=== PATIENT | male | born 1950 | race Caucasian/White ===

== ENCOUNTER 2022-09-26 23:44 | Outpatient (CLI) | payer MEDICARE | END 2022-09-26 23:45 | disposition critical access hospital (66) | LOC: EMS 23:44 | DX: E11.65 Type 2 diabetes mellitus with hyperglycemia (principal) | CPT/HCPCS: A0425; A0427 ==

== ENCOUNTER 2022-09-27 00:12 | Inpatient (IN) | payer MEDICARE, OTHER ==
--- NOTE | 2022-09-27 00:28 | ED Physician Documentation ---
History of Present Illness - Stated complaint Stated Complaint: FALL - Chief complaint Chief Complaint: Neuro - History obtained from History obtained from: Patient, Family, EMS - Additonal information Additional information: Patient is a 71-year-old male presenting for evaluation after a ground-level fall. Per EMS he was walking to the bathroom when he fell. EMS reported he had no LOC but patient cannot recall what happened with the fall or what made him fall. It is unclear if he hit his head.There is no family currently present. Per EMS he does not take a blood thinner. EMS reported that he had similar presentation about a year ago where he had a cough.Patient is visiting family in the area. He is unsure of his current medication list. He is disoriented to time which per EMS is new for him. 0215 - We were eventually able to speak with the patient's . She states that the patient was otherwise doing well earlier today. He was out driving himself and her and that they went to a [employer] store. She states that around 830 he was becoming restless and was getting in and out of bed. He started having several episodes of diarrhea. She states that he was walking toward the bathroom when it seemed that his legs gave out and he fell down. She states that she witnessed this fall and he did not hit his head or have LOC.She states that at baseline he does have some unsteadiness and was advised to use a walker by a physical therapist.She states that he is sometimes forgetful.He does not carry a diagnosis of dementia. He takes medications for diabetes and cholester ol.He has not recently been on antibiotics. She states that he has similar presentation with fall in June and at this time he was diagnosed with pneumonia.This was in [place]. Review of Systems Unable to obtain: Confused PD PAST MEDICAL HISTORY - Allergies Allergies/Adverse Reactions: Allergies Allergy/AdvReac Type Severity Reaction Status Date / Time No Known Drug Allergies Allergy Verified 09/27/22 00:39 PD ED PE NORMAL - General General: No acute distress, Well developed/nourished. No: Alert and oriented X 3 (Alert and oriented to person and place) - HEENT HEENT: Atraumatic - Neck Neck: Supple, no meningeal sign, No bony TTP, C-Spine cleared by NEXUS criteria - Cardiac Cardiac: RRR, No murmur - Respiratory Respiratory: No respiratory distress, Clear bilaterally - Abdomen Abdomen: Normal bowel sounds, Soft, Non tender, Non distended - Derm Derm: Warm and dry - Extremities Extremities: No edema - Neuro Neuro: subassemblies wirer 2-12 intact, No motor deficit, No sensory deficit, Normal speech. No: Alert and oriented X 3 (Confused to date) Eye Opening: Spontaneous Motor: Obeys Commands Verbal: Confused GCS Score: 14 Results - Vitals Vitals: Vital Signs - 24 hr 09/27/22 09/27/22 09/27/22 00:14 00:18 02:22 Temperature 37.1 C Heart Rate 81 74 Heart Rate [ 77 Sitting] Heart Rate [ 97 Standing] Heart Rate [ 71 Supine] Respiratory 18 16 Rate Blood Pressure 145/107 H 145/91 H Blood Pressure 145/91 H [Sitting] Blood Pressure 129/77 [Standing] Blood Pressure 160/77 H [Supine] O2 Saturation 95 94 09/27/22 05:29 Temperature Heart Rate 78 Heart Rate [ Sitting] Heart Rate [ Standing] Heart Rate [ Supine] Respiratory 18 Rate Blood Pressure 139/77 H Blood Pressure [Sitting] Blood Pressure [Standing] Blood Pressure [Supine] O2 Saturation 93 Oxygen O2 Source Room air - EKG (time done) 0100 EKG releavant findings:: EKG personally interpreted by author of this note. Relevant findings are: Rate 75, normal sinus rhythm, right bundle branch block, no STEMI Rate: Rate (enter#) (75) Rhythm: NSR Intervals: RBBB Ischemia: No: ST elevation c/w ischemia Compare to prior EKG: Old EKG unavailable - Labs Labs: Laboratory Tests 09/27/22 09/27/22 09/27/22 00:37 00:37 00:37 WBC 8.2 RBC 5.34 Hgb 14.8 Hct 45.5 MCV 85.2 MCH 27.7 MCHC 32.5 RDW 13.0 Plt Count 172 MPV 10.8 Neut # (Auto) 7.4 H Lymph # (Auto) 0.[address] # (Auto) 0.3 Eos # (Auto) 0.0 Baso # (Auto) 0.0 Absolute Nucleated RBC 0.00 Nucleated RBC % 0.0 PT 12.0 INR 1.1 VBG pH Ionized Calcium Sodium 137 Potassium 4.3 Chloride 95 L Carbon Dioxide 23 Anion Gap 19.0 H BUN 16 Creatinine 1.0 Estimated GFR (MDRD) 73 L Glucose 273 H Calcium 7.5 L Total Bilirubin 0.8 AST 18 ALT 15 Alkaline Phosphatase 46 Troponin I High Sens Total Protein 7.2 Albumin 3.8 Globulin 3.4 Albumin/Globulin Ratio 1.1 Lipase 40 Urine Color Urine Clarity Urine pH Ur Specific [place] Urine Protein Urine Glucose (UA) Urine Ketones Urine Occult Blood Urine Nitrite Urine Bilirubin Urine Urobilinogen Ur Leukocyte Esterase Urine RBC Urine WBC Ur Squamous Epith Cells Amorphous Sediment Urine Bacteria Urine Casts Urine Mucus Ur Microscopic Review Urine Culture Comments Stl C. diff Tox B Gene Urine Opiates Screen Ur Oxycodone Screen Urine Methadone Screen Ur Propoxyphene Screen Ur Barbiturates Screen Ur Tricyclics Screen Ur Phencyclidine Scrn Ur Amphetamine Screen U Methamphetamines Scrn U Benzodiazepines Scrn Urine Cocaine Screen U Cannabinoids Screen Ethyl Alcohol < 5.0 Serum Ketones 09/27/22 09/27/22 09/27/22 00:37 00:37 01:20 WBC RBC Hgb Hct MCV MCH MCHC RDW Plt Count MPV Neut # (Auto) Lymph # (Auto) [facility] [place] [facility] # (Auto) Eos # (Auto) Baso # (Auto) Absolute Nucleated RBC Nucleated RBC % PT INR VBG pH Ionized Calcium Sodium Potassium Chloride Carbon Dioxide Anion Gap BUN Creatinine Estimated GFR (MDRD) Glucose Calcium Total Bilirubin AST ALT Alkaline Phosphatase Troponin I High Sens 7.0 Total Protein Albumin Globulin Albumin/Globulin Ratio Lipase Urine Color DARK YELLOW Urine Clarity CLEAR Urine pH 5.0 Ur Specific [place] >=1.030 H Urine Protein >=300 H Urine Glucose (UA) 500 H Urine Ketones 15 H Urine Occult Blood NEGATIVE Urine Nitrite NEGATIVE Urine Bilirubin NEGATIVE Urine Urobilinogen 0.2 (NORMAL) Ur Leukocyte Esterase NEGATIVE Urine RBC 0-5 Urine WBC 0-3 Ur Squamous Epith Cells FEW Squamous Amorphous Sediment Few Urine Bacteria Few Urine Casts 3-5 Hyaline Casts Urine Mucus Few Strands Ur Microscopic Review INDICATED Urine Culture Comments NOT INDICATED Stl C. diff Tox B Gene Urine Opiates Screen Ur Oxycodone Screen Urine Methadone Screen Ur Propoxyphene Screen Ur Barbiturates Screen Ur Tricyclics Screen Ur Phencyclidine Scrn Ur Amphetamine Screen U Methamphetamines Scrn U Benzodiazepines Scrn Urine Cocaine Screen U Cannabinoids Screen Ethyl Alcohol Serum Ketones NEGATIVE 09/27/22 09/27/22 09/27/22 02:32 03:28 04:36 WBC RBC Hgb Hct MCV MCH MCHC RDW Plt Count MPV Neut # (Auto) Lymph # (Auto) [facility] # (Auto) Eos # (Auto) Baso # (Auto) Absolute Nucleated RBC Nucleated RBC % PT INR VBG pH 7.377 Ionized Calcium 0.96 L Sodium Potassium Chloride Carbon Dioxide Anion Gap BUN Creatinine Estimated GFR (MDRD) Glucose Calcium Total Bilirubin AST ALT Alkaline Phosphatase Troponin I High Sens Total Protein Albumin Globulin Albumin/Globulin Ratio Lipase Urine Color Urine Clarity Urine pH Ur Specific [place] Urine Protein Urine Glucose (UA) Urine Ketones Urine Occult Blood Urine Nitrite Urine Bilirubin Urine Urobilinogen Ur Leukocyte Esterase Urine RBC Urine WBC Ur Squamous Epith Cells Amorphous Sediment Urine Bacteria Urine Casts Urine Mucus Ur Microscopic Review Urine Culture Comments Stl C. diff Tox B Gene NEGATIVE Urine Opiates Screen NEGATIVE Ur Oxycodone Screen NEGATIVE Urine Methadone Screen NEGATIVE Ur Propoxyphene Screen NEGATIVE Ur Barbiturates Screen NEGATIVE Ur Tricyclics Screen NEGATIVE Ur Phencyclidine Scrn NEGATIVE Ur Amphetamine Screen NEGATIVE U Methamphetamines Scrn NEGATIVE U Benzodiazepines Scrn NEGATIVE Urine Cocaine Screen NEGATIVE U Cannabinoids Screen NEGATIVE Ethyl Alcohol Serum Ketones PD Medical Decision Making - ED course Complexity details: reviewed results, re-evaluated patient, d/w patient ED course: Patient is a 71-year-old male presenting with some confusion and near syncope. Unclear if he struck his head. History is limited as patient is not able to provide much and initially family was unreachable. Therefore head CT was ordered which I reviewed and is negative for signs of a bleed.Patient's vitals appear stable. EKG is reviewed and nonischemic. CBC, chemistry, troponin 0358 - Repeat abdominal exam is benign. Patient is able to tell me his name, where he is and now was able to accurately state the month and the year. Departure - Departure Disposition: ED Place in Observation Clinical Impression: Orthostatic dizziness, Diarrhea Condition: Stable
[2022-09-27 00:43] LABS: BASOPHILS % (AUTO) 0.2 %; EOSINOPHILS % (AUTO) 0.5 %; HCT - HEMATOCRIT 45.5 % (42.0-52.0); HGB - HEMOGLOBIN 14.8 g/dL (14.0-18.0); LYMPHOCYTES # (AUTO) 0.4 10^3/uL (1.5-3.5); LYMPHOCYTES % (AUTO) 4.6 %; MEAN CORPUSCULAR HEMOGLOBIN 27.7 pg (27.0-31.0); MEAN CORPUSCULAR HGB CONC 32.5 g/dL (32.0-36.0); MEAN CORPUSCULAR VOLUME 85.2 fL (80.0-94.0); MEAN PLATELET VOLUME 10.8 fL (7.4-11.4); MONOCYTES # (AUTO) 0.3 10^3/uL (0.0-1.0); MONOCYTES % (AUTO) 3.5 %; NEUTROPHILS # (AUTO) 7.4 10^3/uL (1.5-6.6); PLT - PLATELET COUNT 172 10^3/uL (130-450); RED BLOOD COUNT 5.34 10^6/uL (4.70-6.10); WHITE BLOOD COUNT 8.2 x10^3/uL (4.8-10.8)
[2022-09-27 00:50] LABS: INR 1.1 (0.8-1.2)
[2022-09-27 00:58] LABS: ALBUMIN 3.8 g/dL (3.2-5.5); ALBUMIN/GLOBULIN RATIO 1.1 (1.0-2.2); ALKALINE PHOSPHATASE 46 IU/L (42-121); ALT ALANINE AMINOTRANSFERASE 15 IU/L (10-60); AST ASPARTATE AMINOTRANSFERASE 18 IU/L (10-42); BILIRUBIN,TOTAL 0.8 mg/dL (0.2-1.0); BUN - BLOOD UREA NITROGEN 16 mg/dL (6-20); CALCIUM 7.5 mg/dL (8.5-10.3); CARBON DIOXIDE - CO2 23 mmol/L (21-32); CHLORIDE 95 mmol/L (101-111); ETOH - ETHANOL < 5.0 mg/dL; GFR - MDRD 73 (>89); GLUCOSE 273 mg/dL (70-100); LIPASE 40 U/L (22-51); POTASSIUM 4.3 mmol/L (3.5-5.0); SODIUM 137 mmol/L (135-145); TOTAL PROTEIN 7.2 g/dL (6.7-8.2)
--- NOTE | 2022-09-27 01:28 | CT Report ---
PROCEDURE: HEAD WO INDICATIONS: syncope/unclear history TECHNIQUE: Noncontrast 4.5 mm thick angled axial sections acquired from the foramen magnum to the vertex. For r adiation dose reduction, the following was used: automated exposure control, adjustment of mA and/or kV according to patient size. COMPARISON: None. FINDINGS: Image quality: Excellent. CSF spaces: Basal cisterns are patent. No extra-axial fluid collections. Ventricles are normal in size and shape. Brain: No midline shift. No intracranial masses or hemorrhage. Triplett-white matter interface is norm al. Skull and face: Calvarium and visualized facial bones are intact, without suspicious lesions. Sinuses: Visualized sinuses and mastoids are clear. IMPRESSION: No trauma found, source of syncopal episode is not identified. Reviewed by: Richard Watson MD on 09/27/2022 1:27 AM PDT Approved by: Richard Watson MD on 09/27/2022 1:27 AM PDT Station ID: [id number]
--- NOTE | 2022-09-27 01:29 | XRAY Report ---
PROCEDURE: Chest 1 View X-Ray INDICATIONS: syncope TECHNIQUE: One view of the chest was acquired. COMPARISON: None. FINDINGS: Surgical changes and devices: None. Lungs and pleura: No pleural effusions or pneumothorax. Lungs are mildly abnormal with a mild inter stitial prominence accentuated by reduced inspiratory volume. Mediastinum: Mediastinal contours appear normal. Heart size is normal. Bones and chest wall: No suspicious bony lesions. Overlying soft tissues appear unremarkable. IMPRESSION: No acute cardiopulmonary process. No pneumonia or aspiration seen. Reduced inspiratory volume. Reviewed by: Richard Watson MD on 09/27/2022 1:27 AM PDT Approved by: Richard Watson MD on 09/27/2022 1:27 AM PDT Station ID: [id number]
[2022-09-27 01:39] LABS: GLUCOSE, URINE (UA) 500 mg/dL (NEGATIVE); KETONES,URINE (UA) 15 mg/dL (NEGATIVE); LEUKOCYTE ESTERASE, URINE NEGATIVE (NEGATIVE); NITRITE,URINE NEGATIVE (NEGATIVE); OCCULT BLOOD,URINE NEGATIVE (NEGATIVE); PROTEIN,URINE >=300 mg/dL (NEGATIVE); UROBILINOGEN,URINE 0.2 (NORMAL) E.U./dL (NORMAL)
[2022-09-27 01:43] LABS: AMORPHOUS SEDIMENT,UR Few /LPF; BACTERIA,URINE Few /HPF (None Seen); BILIRUBIN,URINE NEGATIVE (NEGATIVE); CASTS, URINE 3-5 Hyaline Casts /LPF; CLARITY,URINE CLEAR (CLEAR); ICTOTEST,URINE NEGATIVE; MUCUS,URINE Few Strands; RBC,URINE 0-5 /HPF (0-5); SQUAMOUS EPITHELIAL CELL,UR FEW Squamous (<= Few); WBC,URINE 0-3 /HPF (0-3)
[2022-09-27] MEDS ORDERED: SODIUM CHLORIDE 0.9% 1,000 ML IV STA ×3 (01:58→06:53)
[2022-09-27 02:37] LABS: CALCIUM, IONIZED 0.96 mmol/L (1.15-1.33); VBG PH 7.377 (7.31-7.41)
[2022-09-27] MEDS ORDERED: CALCIUM GLUC 1,000MG/50ML-NACL 1,000 MG/50 ML BAG IV STA (02:45)
[2022-09-27 03:32] LABS: MUDS CUTOFF CONCENTRATIONS CUTOFF CONC BELOW:
[2022-09-27 03:44] LABS: AMPHETAMINE SCREEN,URINE NEGATIVE (NEGATIVE); BARBITURATE SCREEN,UR NEGATIVE (NEGATIVE); BENZODIAZEPINES SCREEN, URINE NEGATIVE (NEGATIVE); COCAINE SCREEN URINE NEGATIVE (NEGATIVE); METHADONE SCREEN, URINE NEGATIVE (NEGATIVE); METHAMPHETAMINES SCREEN, URINE NEGATIVE (NEGATIVE); OPIATE SCREEN, URINE NEGATIVE (NEGATIVE); OXYCODONE SCREEN, URINE NEGATIVE (NEGATIVE); PROPOXYPHENE SCREEN, URINE NEGATIVE (NEGATIVE); THC CANNABINOID SCREEN, URINE NEGATIVE (NEGATIVE); TRICYCLIC ANTIDEPRESSANT,URINE NEGATIVE (NEGATIVE)
[2022-09-27] MEDS ORDERED: LOPERAMIDE 2 MG CAPSULE PO STA (06:44)
[2022-09-27] MEDS ORDERED: ONDANSETRON 4 MG/2 ML VIAL IVP PRN (12:11)
[2022-09-27] MEDS ORDERED: ACETAMINOPHEN 325 MG TABLET PO PRN (12:11)
[2022-09-27] MEDS ORDERED: SODIUM CHLORIDE FLUSH 0.9% 10 ML SYRINGE IVP PRN (12:11)
--- NOTE | 2022-09-27 12:11 | HISTORY & PHYSICAL EXAMINATION ---
Chief Complaint - Chief Complaint Chief Complaint: Fall at home History of Present Illness - Admitted From Admitted From:: ED - History Obtained From History obtained from: ED provider note and from by phone - History of Present Illness HPI Comment/Other: This is a 71-year-old white male who lives in [place], he and his flew here to visit her family several days ago, and are staying for 1 week. Patient has a history of diabetes, hypertension, and hyperlipidemia. For the last 2 weeks his morning fingerstick glucoses have been 180s to 240 which is not usual ly that high. He has been fine for the last several days however she reported that on the plane trip here, he ate a large chocolate candy bar which he normally does not do.Yesterday at the family house, he ate a family-sized entire bag of [employer]es[employer] chocolate bars and 4 boxes of raisins. Yesterday he felt fine, was able to drive the car and they went to a [employer] grocery store. When he returned home he started to get restless and she reports he was getting out of bed very often, starting at 8:30 PM and was fidgety. He then had diarrhea several times. One of the episodes while walking to the bathroom he fell and landed on her luggage. He did not hit his head. EMS was called and brought him to the ER. She states that at baseline he does have some unsteadiness and was advised to use a walker by a physical therapist. He is sometimes forgetful, but does not carry a diagnosis of dementia. He has a tremor and neuropathy and sees a neurologist. He has not recently been on antibiotics. She states that he had a similar presentation with a fall in June and at that time he was diagnosed with pneumonia and sepsis, was 5 days in the ICU and 3 weeks in the hospital in [place]. The ambulance run sheet is available and describes that the pt was "incontinent when he fell". Vital signs at the scene were: BP 103/71, HR 83, he had a low- grade temperature of 100.0 F and he was not hypoglycemic, his fingerstick glu was 232. He was brought into the ED by ambulance. A set of orthostatic vital signs were done in the ER showing he had a supine systolic BP of 160, dropped to 129 systolic with standing. IV fluids were started. Pt later reported he "remembers blacking out" but was uncertain about how he fell. His head CT showed no acute changes. The ED provider spoke to me about this patient to place him in Observation and treat syncope from orthostasis, likely caused by fluid loss from diarrhea. As I am meeting the patient he is supine and in no distress, awakens to his name. He has a tremulous voice and he did remember they flew here by plane from [place], but cannot remember when, he says he came here to visit his and then says he traveled here with his . He cannot remember anything about the event that brought him here. He does know he is in the hospital. History - Past Medical History Cardiovascular: reports: Hypertension Endocrine/Autoimmune: reports: Type 2 diabetes MRSA Hx?: No - Family & Social History Living arrangement: At home Living Situation: With spouse/s.o. 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 He only tried cigarettes but never smoked, and he only drinks beer when he goes gambling in [place], otherwise no alcohol. No illicit drug use. - Substance History Use: Uses substance without health or social issues: NONE - POLST Patient has POLST: No Meds/Allgy - Home Medications Home Medications: Ambulatory Orders Medication Instructions Recorded Confirmed Aspirin EC [Ecotrin] 1 tab PO DAILY 09/27/22 09/27/22 Cyanocobalamin (Vitamin B-12) 1 tab PO DAILY 09/27/22 09/27/22 [Vitamin B-12 (1000 mcg sublingual)] Insulin Detemir [Levemir] 48 units SQ HS 09/27/22 09/27/22 Lisinopril [Zestril] 1 tab PO DAILY 09/27/22 09/27/22 Metformin HCl 1 tab PO BID 09/27/22 09/27/22 Robards-3/Dha/Epa/Fish Oil [Fish Oil 1 cap PO DAILY 09/27/22 09/27/22 1,000 mg Softgel] Omeprazole Magnesium 1 cap PO DAILY 09/27/22 09/27/22 Propranolol HCl [Propranolol HCl 1 cap PO DAILY 09/27/22 09/27/22 ER] - Allergies Allergies/Adverse Reactions: Allergies Allergy/AdvReac Type Severity Reaction Status Date / Time No Known Drug Allergies Allergy Verified 09/27/22 00:39 Review of Systems - Neurological Neurological: reports: Other (Tremor) - All Other Systems All Other Systems: reports: Reviewed and negative (The entire HPI and the entire ROS were obtained from the ) Exam - Vital Signs Vital Signs: Vital Signs x48h Pulse Resp BP Pulse Ox 09/27/22 10:06 74 22 132/76 H 94 09/27/22 08:25 75 16 120/82 H 93 09/27/22 05:29 78 18 139/77 H 93 - Physical Exam General Appearance: positive: No acute distress, Alert Eyes Bilateral: positive: Normal inspection, EOMI ENT: positive: Dry mucous membranes Neck: positive: Nml inspection, No JVD Respiratory: positive: No respiratory distress, Breath sounds nml Cardiovascular: positive: Regular rate & rhythm, No murmur Abdomen: positive: Non-tender, Nml bowel sounds, No distention Skin: positive: Warm, Dry Extremities: positive: Non-tender, No pedal edema Neurologic/Psychiatric: positive: Disoriented to person, Disoriented to place, Disoriented to time, Other (Voice is tremulous) Conclusion/Plan - Problem List (1) Syncope Conclusion/Plan: He has documented orthostasis which is likely the cause of the syncope at home Plan: We will treat the orthostasis, give IV fluids Monitor for arrhythmias on telemetry We will order an Echocardiogram to evaluate for structural heart disease (however today is Wednesday and we have no avionics test technician here until Wednesday) (2) Orthostatic hypotension Conclusion/Plan: His admission work-up shows that he has a concentrated urine with specific gr avity greater than 1.030 consistent with dehydration. All labs were reviewed. He has had diarrhea for a day. There is documented orthostasis. Plan: We will place him in Observation status, monitor on telemetry Give iv fluids Continue to monitor orthostatic vital signs Hold his propranolol and lisinopril until he is not orthostatic (3) Diarrhea Conclusion/Plan: Stool sample has already been sent from the ER showing he is C. difficile negative Plan: We will obtain CT abdomen pelvis imaging, looking for severity of possible colitis We will order clear liquids, for bowel rest Await bacterial culture results that have also been sent off already with the s tool Since C. difficile negative, we could start Imodium as needed Continue with IV hydration (4) Diabetes mellitus Conclusion/Plan: Plan: He will be started on clear liquid diet for bowel rest Continue with IV fluids that contain D5. We will order before meals and at bedtime fingerstick checks and sliding scale insulin coverage, hypoglycemia protocol and check A1c Await the reconciled medication list from pharmacy - Lab Results Fish Bones: 09/27/22 00:37 09/27/22 00:37 - Diagnostic Imaging Results Diagnostic Imaging Results: positive: Final report reviewed
--- NOTE | 2022-09-27 13:00 | CT Report ---
PROCEDURE: ABDOMEN/PELVIS WO INDICATIONS: Diarrhea TECHNIQUE: Noncontrast 5 mm thick sections acquired from the diaphragms to the symphysis. 5 mm coronal and sagi ttal reformats were then performed. For radiation dose reduction, the following was used: automated exposure control, adjustment of mA and/or kV according to patient size. COMPARISON: None. FINDINGS: Image quality: Excellent. Lung bases and heart: Calcification of the coronary vasculature is present. Liver: No solid mass. Gallbladder and biliary tree: Within normal limits on noncontrast imaging Spleen: No splenomegaly. Pancreas: No pancreatic ductal dilation. Adrenals: No adrenal nodule. Kidneys and ureters: No hydronephrosis. No renal cystic lesion which requires follow up. No solid mas s. Bowel and peritoneum: Mildly distended fluid-filled small bowel loops. No pathologic free fluid. Well -circumscribed cystic focus within the left upper quadrant measuring roughly 95 mm diameter. Normal a ppendix. Lymph nodes: No central or retroperitoneal adenopathy. Vessels: No infrarenal aortic aneurysm. PELVIS Reproductive organs: Unremarkable. Bladder: No abnormal wall thickening, accounting for underdistension. Pelvic lymph nodes: No pelvic adenopathy by size criteria. Bones: No aggressive osseous abnormality. Other: No significant ventral or inguinal hernia. IMPRESSION: 1. No evidence of urinary tract calcification nor obstruction. Next line 2. Gastroenteritis. 3. Benign-appearing left upper quadrant cystic focus. 4. Normal appendix. Reviewed by: Esvin Ornelas MD on 09/27/2022 11:59 AM PERRY Approved by: Esvin Ornelas MD on 09/27/2022 11:59 AM PERRY Station ID: [id number]
[2022-09-27] MEDS ORDERED: COD LIVER OIL/ZINC OXIDE 113 GM TUBE TOP PRN (14:09)
[2022-09-27] MEDS: DEXTROSE 5%-0.9% NACL 1,000 ML IV SCH (15:00)
[2022-09-27] MEDS: INSULIN LISPRO 300 UNIT/3 ML PEN SUBQ SCH ×2 (16:18→20:35)
[2022-09-27] MEDS: SODIUM CHLORIDE FLUSH 0.9% 10 ML SYRINGE IVP SCH (16:19)
--- NOTE | 2022-09-27 16:54 | PHARMACY PROGRESS NOTE ---
- Best Possible Medication History Admit Date and Time: 09/27/22 1212 Processed by: Pharmacy Medication History completed: Yes Patient Interview: Completed Secondary Source(s): Pharmacy records (USED MED LIST ) As the person ultimately responsible for medication therapy, providers are able to order a medication from an existing home medication list in [facility] via the "Reconcile Routine" prior to Confirmation of that medication by director of operations support. Such practice is discouraged except when the physician, in their clinical judgment, deems that a medical need exists for a medication without regard to previous use.
[2022-09-27] MEDS ORDERED: LORazepam 2 MG/ML VIAL IVP ONE (22:48)
[2022-09-28] MEDS: DEXTROSE 5%-0.9% NACL 1,000 ML IV SCH ×3 (00:35→21:12)
[2022-09-28] MEDS: SODIUM CHLORIDE FLUSH 0.9% 10 ML SYRINGE IVP SCH ×3 (00:36→17:10)
[2022-09-28] MEDS: INSULIN LISPRO 300 UNIT/3 ML PEN SUBQ SCH ×4 (08:26→21:13)
[2022-09-28] MEDS: ASPIRIN EC 81 MG TABLET PO SCH (08:26)
[2022-09-28] MEDS ORDERED: LOPERAMIDE 2 MG CAPSULE PO PRN (08:46)
[2022-09-28 11:30] LABS: ESTIMATED AVERAGE GLUCOSE 186 mg/dL (70-100); HEMOGLOBIN A1c% 8.1 % (4.27-6.07)
--- NOTE | 2022-09-28 18:58 | MRI Report ---
PROCEDURE: BRAIN WO INDICATIONS: acute confusion w new afib TECHNIQUE: Noncontrast axial T1 spin echo, axial T2 fast spin echo, sagittal and axial FLAIR, coronal T2 fast sp in echo, axial gradient echo, axial diffusion and ADC through the brain. COMPARISON: None. FINDINGS: Image quality: Excellent. CSF Spaces: Basal cisterns are patent. No extra-axial fluid collections. Ventricles are normal in size and shape. Brain: No intracranial masses or hemorrhage. Triplett/white matter interface is normal. Brainstem appe ars normal. Diffusion-weighted images demonstrate no acute ischemic insult. No chronic ischemic ins ults. Normal intravascular flow voids are present. Periventricular white matter T2 hyperintense sig nal, most consistent with chronic small vessel ischemic disease; this is within normal limits for age . Skull and face: Calvarium has normal marrow signal. Orbits appear normal. Sinuses: Sinuses and mastoids are clear. IMPRESSION: No evidence of ischemic infarct. Reviewed by: Demarco Ball on 09/28/2022 5:57 PM PERRY Approved by: Demarco Ball on 09/28/2022 5:57 PM PERRY Station ID: [id number]
[2022-09-28] MEDS ORDERED: INSULIN GLARGINE-YFGN 300 UNIT/3 ML PEN SUBQ SCH (21:00)
--- NOTE | 2022-09-28 21:10 | PROVIDER PROGRESS NOTE ---
Progress Note September 28, 2022 9:03 PM Over the course of the day the patient has improved. He has had improved speech, less confusion but it still present. He admits that he ate a bag of [employer] peanut butter cups because it tasted so good. Be surprised to think that that would have been the cause of his acute symptoms. As such I ordered a MRI since CT of the head was negative. Brain MRI shows no evidence of acute infarct. Exam: Temperature 37.2, heart rate 93, blood pressure 133/99. Earlier today orthostatics were done. Supine 120/81, sitting 118/55, standing 109/69. Heart rate remained at about 100-107. Morbidly obese pleasant white male. Evidence of memory loss that may be chronic and old for him. Neck is supple Lungs are clear no respiratory distress Regular rate and rhythm Abdomen is obese, soft, nontender Extremities are with trace edema, Neurologically he is oriented to place, but not to the date. He knows he is in [facility] in a hospital because of some event yesterday Labs were reviewed from yesterday. No labs for today other than his glucose. Assessment/plan 1. Syncope. Thought processes that he has orthostatic syncope. He has been given IV fluids, and he has been monitored for arrhythmias on telemetry. None of been elucidated. Echocardiogram needs to be done but that is not available till tomorrow. Plan: Continue to treat orthostatic hypotension that is still present with IV fluids Echocardiogram tomorrow Change status from observation status to inpatient status 2. Orthostatic hypotension. Consistent with dehydration on urinalysis and history of diarrhea for a day. He is responding to IV fluids but still slightly orthostatic today. As such those will be continued. 3. Diarrhea. CT of the abdomen and pelvis was done for colitis. He had mildly distended fluid-filled small bowel loops. But no pathologic free fluid. Normal appendix. No aneurysm. As such he does have evidence of mild enteritis as a cause of his diarrhea. C. difficile negative. We will just treat symptomatically with Imodium as needed. I also told him that a bag of [employer] peanut butter cups probably did not help. 4. Type 2 diabetes mellitus, uncontrolled with hyperglycemia, without complications. Not on long-term insulin. A1c is 8.1%. Advance from clear liquid diet. Increase insulin to 15 units of Semglee at night, and continue sliding scale insulin before each meal 5. New onset atrial fibrillation. He has no history of atrial fibrillation. Currently has no chest pain, palpitations, shortness of breath. This started overnight and was noted by telemedicine on EKG. I repeated EKG and he continues to A-fib be in A-fib. Plan: Check troponin even though there is no change of ST segments on EKG and the patient is asymptomatic and Procan 1 g over 1 hour and see if he can convert Echocardiogram in a.m. I did do an MRI to make sure there was no ischemic event causing the syncope and MRI is negative.
[2022-09-28] MEDS ORDERED: PROCAINAMIDE 100 MG/1 ML 10 ML MDV IV ONE (21:13)
[2022-09-28] MEDS ORDERED: TEMAZEPAM 15 MG CAPSULE PO PRN (21:14)
[2022-09-28] MEDS: APIXABAN 5 MG TABLET PO SCH (22:01)
[2022-09-28] MEDS ORDERED: PROCAINAMIDE IV ONE (22:30)
[2022-09-28] MEDS ORDERED: SODIUM CHLORIDE 0.9% IV ONE (22:30)
[2022-09-28] MEDS ORDERED: PROCAINAMIDE 1,000 MG/10 ML SYRINGE ONE (22:48)
[2022-09-29] MEDS: SODIUM CHLORIDE FLUSH 0.9% 10 ML SYRINGE IVP SCH ×2 (02:23→09:11)
[2022-09-29] MEDS: DEXTROSE 5%-0.9% NACL 1,000 ML IV SCH ×2 (07:23→15:01)
[2022-09-29] MEDS: APIXABAN 5 MG TABLET PO SCH (08:23)
[2022-09-29] MEDS: INSULIN LISPRO 300 UNIT/3 ML PEN SUBQ SCH ×2 (08:24→12:08)
[2022-09-29] MEDS: ASPIRIN EC 81 MG TABLET PO SCH (08:24)
[2022-09-29] MEDS ORDERED: METOPROLOL SUCCINATE 25 MG TABLET PO SCH (09:00)
--- NOTE | 2022-09-29 13:04 | Ultrasound Report ---
PROCEDURE: Duplex Ext Veins Bilateral INDICATIONS: Darion Benavides MD TECHNIQUE: Real-time imaging, as well as color and pulse Doppler interrogation, were performed of the deep veins of both legs from the inguinal ligament to the popliteal fossa. COMPARISON: None FINDINGS: The deep veins are normally compressible, and free of intraluminal thrombus. Color and pu lse Doppler demonstrate normal phasic intravascular flow. There is normal augmentation response to d istal compression maneuver. IMPRESSION: No evidence of DVT. Reviewed by: Steven Medel MD on 09/29/2022 1:02 PM PDT Approved by: Steven Medel MD on 09/29/2022 1:02 PM PDT Station ID: [id number]
--- NOTE | 2022-09-29 13:19 | Ultrasound Report ---
PROCEDURE: Duplex Lwr Ext Arterial Bilat INDICATIONS: new onset afib w hx of flying hours, obese TECHNIQUE: Color and pulse Doppler interrogation was performed of both lower extremity arterial systems, with im age documentation. COMPARISON: None FINDINGS: Right lower extremity: Common femoral artery: 77 cm/sec, with triphasic flow. Deep femoral artery: 42 cm/sec, with triphasic flow. Proximal superficial femoral artery: 68 cm/sec, with triphasic flow. Mid superficial femoral artery: 57 cm/sec, with triphasic flow. Distal superficial femoral artery: 51 cm/sec, with triphasic flow. Popliteal artery: 48 cm/sec, with triphasic flow. Posterior tibial artery: 91 cm/sec, with triphasic flow. Anterior tibial artery/dorsalis pedis: 75/49 cm/sec, with triphasic flow. Triplett-scale imaging description: Unremarkable. Left lower extremity: Common femoral artery: 52 cm/sec, with biphasic flow. Deep femoral artery: 57 cm/sec, with biphasic flow. Proximal superficial femoral artery: 76 cm/sec, with triphasic flow. Mid superficial femoral artery: 67 cm/sec, with triphasic flow. Distal superficial femoral artery: 50 cm/sec, with triphasic flow. Popliteal artery: 40 cm/sec, with triphasic flow. Posterior tibial artery: 81 cm/sec, with triphasic flow. Anterior tibial artery/dorsalis pedis: 46/70 cm/sec, with triphasic flow. Triplett-scale imaging description: Unremarkable IMPRESSION: Patent lower extremity arterial vasculature, without hemodynamically significant stenosis. Reviewed by: Demarco Ball on 09/29/2022 12:17 PM PERRY Approved by: Demarco Ball on 09/29/2022 12:17 PM AKTIKA Station ID: [id number]
--- NOTE | 2022-09-29 14:16 | Discharge Plan ---
Discharge Plan Problem Reviewed?: Yes Disposition: Home, Self Care Condition: Stable Prescriptions: Apixaban [Eliquis] 10 mg PO BID #28 tablet Diet: Regular Activity Restrictions: Activity as Tolerated Shower Restrictions: No Driving Restrictions: Yes (no driving) Assistance Devices: Walker Instruction Topics: Atrial Fibrillation Dc, Stroke Prevent Live W Atrial Fib, Apixaban oral tablets Health Concerns: You are visiting from [place] and you have a history of memory loss, diabetes, and high blood pressure. Even though you have diabetes, you really like your chocolates and you ate a bag of [employer] peanut butter cups on the first day. Then he started not feeling well and had diarrhea, confusion, and problems with your words. Your brought you to the emergency room and we were worried that you are having a stroke. The CT of your head as well as the MRI of your brain did not show stroke. You are not having a heart attack. You had no infection in your lungs, belly or urine. Your speech started coming back. But you do have problems with memory and we think that you have mild to moderate dementia. In the middle of your evaluation you began having an irregular heartbeat. You now have been diagnosed with new onset atrial fibrillation. You have had an ultrasound of the heart to make sure that your chamber sizes are normal. You received a medicine to try and convert you and that medicine was called procainamide. It did not convert you to a regular rhythm. But your blood pressure is stable. You have no other symptoms with this irregular heartbeat. Plan of Treatment: For the new onset atrial fibrillation, we need to make sure that your heart rate is controlled. Occasionally your heart rate can get very high with this problem and we do not want that to happen. As such you will stay on your propranolol. That will help you slow down your heart rate and help your essential tremor that you already have. Associated with atrial fibrillation is a increased risk of stroke. So you will be started on a blood thinner in the form of Eliquis 5 mg. It is 2 tablets twice a day. Do that for a week and then you will go to one 5 mg twice a day. I have called in a weeks worth of prescription to the pharmacy for you. Before it runs out you should be able to see your primary care provider in [place] for a refill. Please see your primary care provider in the next week. Care Goals: To return back to your usual living situation in [place]. Under the care of your . I would asked that you start making plans in the eventuality you have severe memory loss and you require 24/7 care Assessment: Patient is a pleasant, alert but disoriented gentleman. Word finding problems. But cooperative, and anxious for discharge No Smoking: If you smoke, Please STOP! Call for help.
--- NOTE | 2022-09-29 14:23 | DISCHARGE SUMMARY ---
Discharge Summary Admit Date: 09/28/22 Discharge Date: 09/29/22 Discharging Provider: Frieda Hernandez MD Primary Care Provider: Lauren Cazares MD; [facility]age FAX: [phone], office Code Status: Attempt Resuscitation Condition at Discharge: Stable Discharge Disposition: 01 Home, Self Care - DIAGNOSES Discharge Diagnoses with Status of Each Condition: 1. Syncope 2. Orthostatic hypotension 3. Diarrhea 4. Type 2 diabetes mellitus, uncontrolled, with hyperglycemia, without complications, not on long-term insulin 5. New onset atrial fibrillation 6. Moderate dementia - HPI History of Present Illness: This is a 71-year-old white male who lives in [place], he and his flew here to visit her family several days ago, and are staying for 1 week. Patient has a history of diabetes, hypertension, and hyperlipidemia. For the last 2 weeks his morning fingerstick glucoses have been 180s to 240 which is not usually that high. He has been fine for the last several days however she r eported that on the plane trip here, he ate a large chocolate candy bar which he normally does not do.Yesterday at the family house, he ate a family-sized entire bag of Rees[employer] chocolate bars and 4 boxes of raisins. Yesterday he felt fine, was able to drive the car and they went to a [employer] grocery store. When he returned home he started to get restless and she reports he was getting out of bed very often, starting at 8:30 PM and was fidgety. He then had diarrhea several times. One of the episodes while walking to the bathroom he fell and landed on her luggage. He did not hit his head. EMS was called and brought him to the ER. She states that at baseline he does have some unsteadiness and was advised to use a walker by a physical therapist. He is sometimes forgetful, but does not ca rry a diagnosis of dementia. He has a tremor and neuropathy and sees a neurologist. He has not recently been on antibiotics. She states that he had a similar presentation with a fall in June and at that time he was diagnosed with pneumonia and sepsis, was 5 days in the ICU and 3 weeks in the hospital in [place]. The ambulance run sheet is available and describes that the pt was "incontinent when he fell". Vital signs at the scene were: BP 103/71, HR 83, he had a low- grade temperature of 100.0 F and he was not hypoglycemic, his fingerstick glu was 232. He was brought into the ED by ambulance. A set of orthostatic vital signs were done in the ER showing he had a supine systolic BP of 160, dropped to 129 systolic with standing. IV fluids were started. Pt later reported he "remembers blacking out" but was uncertain about how he fell. His head CT showed no acute changes. The ED provider spoke to me about this patient to place him in Observation and treat syncope from orthostasis, likely caused by fluid loss from diarrhea. As I am meeting the patient he is supine and in no distress, awakens to his name. He has a tremulous voice and he did remember they flew here by plane from [place], but cannot remember when, he says he came here to visit his and then says he traveled here with his . He cannot remember anything about the event that brought him here. He does know he is in the hospital. - Past Medical History Cardiovascular: reports: Hypertension Endocrine/Autoimmune: reports: Type 2 diabetes MRSA Hx?: No - CONSULTS | PROCEDURES Procedures: 1. Head CT with no intracranial bleeding, no stroke, no trauma. No source of syncopal episode identified. 2. Chest x-ray. No acute cardiopulmonary process. No pneumonia or aspiration seen. 3. Abdomen pelvis CT without any evidence of urinary tract calcification or obstruction. Mildly distended fluid-filled small bowel but no pathologic free fluid. Well-circumscribed cystic focus within the left upper quadrant measuring 95 mm. Bladder has no thickening. 4. Brain MRI without any evidence of ischemic infarct 5. Venous duplex study of legs have no evidence of intraluminal thrombus. 6. Echocardiogram has mild concentric left ventricular hypertrophy. Overall ejection fraction 65%. Right ventricle systolic function normal. No concerning valvular heart disease. 7. Stool culture has negative E. coli Shiga and negative Salmonella Shigella. Campylobacter pending. - HOSPITAL COURSE Hospital Course: He presented his confusion and as well as near syncope. Evaluation does not show aortic stenosis, TN, arrhythmia. He was given IV fluids in case of orthostatic hypotension. He did have some mild orthostatic vital sign changes. Diarrhea essentially resolved. Cultures were negative. He did not receive any antibiotics for this. He has diabetes was uncontrolled with an A1c of 8.1%. He was treated with Semglee at night and sliding scale insulin to control his sugars. His only new problem was that of new onset atrial fibrillation. This developed after admission. Echocardiogram was discussed as above. He received Procan for the [place] protocol and did not convert. As such he was continued on his propranolol for rate control as well as his tremors and he was started on Eliquis. Troponins were negative. All of this was discussed with his . The patient seems to be exhibiting memory loss. She states that that is a chronic problem for him. But none of his doctors have stated that he has dementia. I explained to his that I do feel he has moderate dementia and she should plan for worsening dementia. They will be returning to [place], hopefully tomorrow. I have given him a letter stating that he is safe to fly. He will need to take the Eliquis for the next 7 days and change the dose according to what his PCP wants. Other than the Eliquis, there is no change in his home medication list of aspirin, omega-3 fish oil, Levemir, metformin, magnesium, propranolol, lisinopril. I would recommend that he might want to consider changing the metformin. He would be at risk for lactic acidosis due to his forgetfulness, and lack of insight. At discharge temperature was 36.6. Heart rate 84 and irregular. Blood pressure 145/88. Respirations 18. Orthostatic vitals were done in supine blood pressure 120/77, sitting blood pressure 116/85, and standing blood pressure 107/71. He is a cooperative but confused elderly gentleman. Looks older than stated age. Neck is supple. Lungs are clear without any increased respiratory effort. He has an irregular rate and rhythm and is not tachycardic. Abdomen is soft, nontender, and his last bowel movement was yesterday. He has a large protuberant abdomen. He is incontinent of urine. Perineum has redness and moistness. He is able to stand without an assist. Walk without ataxia. But he is very forgetful. I have asked him to make sure that he follows up with his primary care provider. That is Dr. Lauren Cazares MD; [facility] in [place]. FAX: [phone], office Greater than 30 minutes was spent coordinating discharge - ALLERGIES Allergies/Adverse Reactions: Allergies Allergy/AdvReac Type Severity Reaction Status Date / Time No Known Drug Allergies Allergy Verified 09/27/22 00:39 - MEDICATIONS Home Medications: Ambulatory Orders Medication Instructions Recorded Confirmed Aspirin EC [Ecotrin] 1 tab PO DAILY 09/27/22 09/27/22 Cyanocobalamin (Vitamin B-12) 1 tab PO DAILY 09/27/22 09/27/22 [Vitamin B-12 (1000 mcg sublingual)] Insulin Detemir [Levemir] 48 units SQ HS 09/27/22 09/27/22 Lisinopril [Zestril] 1 tab PO DAILY 09/27/22 09/27/22 Metformin HCl 1 tab PO BID 09/27/22 09/27/22 [place]-3/Dha/Epa/Fish Oil [Fish Oil 1 cap PO DAILY 09/27/22 09/27/22 1,000 mg Softgel] Omeprazole Magnesium 1 cap PO DAILY 09/27/22 09/27/22 Propranolol HCl [Propranolol HCl 1 cap PO DAILY 09/27/22 09/27/22 ER] Apixaban [Eliquis] 10 mg PO BID #28 tablet 09/29/22 - LABS Result Diagrams: 09/27/22 00:37 09/27/22 00:37
[2022-09-29 14:55] VITALS: BP 145/88
== END 2022-09-29 16:00 | disposition home or self-care (01) | DRG 312 ==
LOC: ED 00:12 → MS3 12:12 → OBSVTOIN 09-28 21:02
PROVIDERS: ADMIT Internal Medicine; ATTEND Specialist
DX: I95.1 Orthostatic hypotension (principal); R42 Dizziness and giddiness; E11.65 Type 2 diabetes mellitus with hyperglycemia; I45.10 Unspecified right bundle-branch block; I48.91 Unspecified atrial fibrillation; F03.B0 Unspecified dementia, moderate, without behavioral disturbance, psychotic disturbance, mood disturbance, and anxiety; I10 Essential (primary) hypertension; E11.40 Type 2 diabetes mellitus with diabetic neuropathy, unspecified; E78.5 Hyperlipidemia, unspecified; R19.7 Diarrhea, unspecified; R41.0 Disorientation, unspecified; R25.1 Tremor, unspecified; R26.81 Unsteadiness on feet; Z79.4 Long term (current) use of insulin; Z79.82 Long term (current) use of aspirin; Z79.84 Long term (current) use of oral hypoglycemic drugs; Z79.899 Other long term (current) drug therapy
CPT/HCPCS: 36415; 70450; 70551; 71045; 74176; 80053; 80306; 81001; 82009; 82330; 83036; 83690; 84484; 85025; 85379; 85610; 87045; 87046; 87427; 87493; 93005; 93306; 93925; 93970; 96361; 96365; 96375; 99284; 99285; A9270; G0480; J1815; J2060; J2690; J7040; 80320; 81003; 87086